=== PATIENT | male | born 1980 | race Caucasian/White ===

== ENCOUNTER 2024-07-13 06:11 | Inpatient (IN) | payer MEDICAID, SELFPAY ==
[2024-07-13] VITALS (8 sets, daily range): BP systolic 114–158; BP diastolic 77–113; PULSE 78–138; RESP 16–20; TEMP 36.6–37; O2SAT 96–100; BMI 26.7
--- NOTE | 2024-07-13 06:00 | HP.PCM.HOS_ITS ---
[facility] - General General Date of Admission: 07/13/24 Date of Service: 07/13/24 Chief Complaint: Wants Help with EtOH Detox. HPI Narrative DORENE ARVIZU, is a 44 M with a past medical history of being overweight; with BMI of 26.7 this admission, history of former tobacco abuse, history of asthma and Chronic EtOH Abuse; with patient routinely drinking ~12 sixteen oz. 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 Mr. Arvizu reports his symptoms began approximately three weeks prior to admission when he relapsed into his EtOH addiction in the aftermath of grieving for his pet. He states his last drink was on the morning of July 12, 2024 and he then developed tremors and worsening anxiety with nausea and sweats. He then went to [facility] ER where he was treated with IV Valium and banana bag IVF with persistent tachycardia in the ~130 bpm range. He denies fever, chills, abdominal pain, diarrhea, constipation, chest pain or SOB but he does admit to also being addicted to his rescue inhaler which he states he uses 50 times per day. He was then diagnosed with Acute EtOH Withdrawal in the setting of Chronic EtOH Abuse triggered by Severe Grief over the recent of his dog and he was then admitted to the PCU for ongoing care for a stay that is expected to extend beyond 2 midnights. [facility] Medical History no medical history Family History no significant family his Surgical History no surgical history Social History Smoking Status: Former smoker ROS ROS Narrative Review of Systems: General: Patient denies fevers chills. HENT: Denies headache, denies stuffy nose, denies sore throat EYES: Denies changes in vision or discharge from eyes. Resp: Denies cough, denies shortness of breath Cardiac: Patient admits to heart racing but he denies chest pain. GI: Denies abdominal pain, denies changes in bowel, had some nausea : Denies changes in urination Extremity: Denies swelling Musculoskeletal: Feels somewhat generally weak and unwell but he denies arthralgias or myalgias. Neuro: Patient denies headache, paresthesias or focal neurologic weakness. Heme: Denies any bleeding or bruising Skin: Denies rashes Psychiatric: Patient admits to heightened anxiety since the of his dog as per HPI. He denies suicidal or homicidal ideation. Endocrine: No polyuria, polydipsia or polyphagia. The rest of the 14 point ROS was negative except for positives in HPI. Vital Signs Vital Signs Vital Signs: 07/13/24 05:35 Temperature 97.8 F Temperature Source Temporal Pulse Rate 138 H Respiratory Rate 18 Blood Pressure 147/110 H Blood Pressure Mean 122 Blood Pressure Source Monitor Blood Pressure Position Sitting Blood Pressure Location Right Arm Pulse Ox 99 Oxygen Delivery Method Room Air Weight Weight: 180 lb 15.992 oz Body Mass Index (BMI) 26.7 Physical Exam Const alert, oriented x3, no apparent distress and average body habitus General Appearance: cooperative HEENT normocephalic, head/scalp atraumatic, hearing grossly normal bilaterally and moist oral mucous membranes Eyes PERRL and EOMs intact bilaterally Neck no lymphadenopathy and supple Resp normal respiratory effort, no retractions, no use of accessory muscles and clear to auscultation bilaterally Cardio regular rate and regular rhythm Cardio Narrative: Tachycardia noted in the ~130 bpm range. GI normal to inspection, nondistended, normoactive bowel sounds, soft to palpation and non-tender Extremity normal to inspection, full ROM and no clubbing, cyanosis or edema Skin Skin Narrative: Patient has numerous tattoos over his extremities but he has no evidence of rash , abscess or jaundice. Neuro oriented x3, CN's II-XII intact bilaterally, moves all extremities and no focal motor deficits Sensorium / Orientation: awake, alert, oriented to person, oriented to place and oriented to time Psych Mood & Affect: anxious Results Medical Records Data Attestation: I reviewed the patient's medical records Lab / Micro Data Attestation: I reviewed the patient's lab results. Lab results narrative: WBC 7.3 HGB 15.4 PLT 264 COVID - RENEE 16 Assessment & Plan Assessment/Plan (1) Alcohol withdrawal: QUALIFIERS: Complication of substance-induced condition: with unspecified complication Qualified Code(s): F10.939 - Alcohol use, unspecified with withdrawal, unspecified (2) Chronic alcohol abuse: (3) Acute anxiety: (4) Former tobacco use: (5) Overweight (BMI 25.0-29.9): PLAN: Plan 1. Acute EtOH Withdrawal in the setting of Chronic EtOH Abuse - Admit to PCU for treatment under the EtOH detox protocol primarily consisting of Phenobarbital taper. EtOH Cessation will be strongly encouraged. 2. Acute Anxiety Flare triggered by the recent of his dog of ~13 years - Noted. Give Vistaril IM for breakthrough symptoms of anxiety. 3. Former history of Tobacco Abuse complicating #1 & #2 - Noted. 4. Overweight; with BMI of 26.7 this admission - Weight loss will be recommended. Check TSH. 5. DVT prophylaxis - Lovenox 40 mg sq daily. Total time: Approximately 40 minutes. Charges/Coding Visit Charges Inpatient E&M: 61827 Init Hosp L1
--- NOTE | 2024-07-13 06:33 | EKG12_ITS ---
Test Reason : Blood Pressure : / mmHG Vent. Rate : 109 BPM Atrial Rate : 109 BPM P-R Int : 158 ms QRS Dur : 082 ms QT Int : 334 ms P-R-T Axes : 061 072 052 degrees QTc Int : 449 ms Sinus tachycardia Otherwise normal ECG No previous ECGs available Confirmed by SAVITA MOTT, KURTIS ([id number]), newspaper or periodical editor LEX MCCALL ([id number]) on 07/14/2024 6:22:52 AM Referred By: CARLOS Confirmed By:KURTIS BARNEY MD
[2024-07-13 07:29] LABS: Prothrombin Time (Protime)PT. 13.2 SECONDS (11.7-14.9)
[2024-07-13] MEDS: Gabapentin 300 MG Capsule PO ×2 (07:40→23:50)
[2024-07-13] MEDS: 0.9% Normal Saline (1000mL) 1,000 ML 125 ML IV (07:40)
[2024-07-13] MEDS: Phenobarbital 32.4 MG Tablet 64.8 MG PO ×5 (07:40→23:50)
[2024-07-13 08:12] LABS: Alcohol, Blood (Medical)-Serum < 3.0 mg/dL
--- NOTE | 2024-07-13 08:31 | PCM.PN.HOSP ---
Reason for Visit Reason for Visit: EtOH Detox Subjective Subjective Patient is a 44-year-old male who presented to the emergency department at [facility] emergency department on 07/13/2020 for requesting detox from alcohol. Since they do not do detox there he was transferred to this facility. Patient reported that he is drinking routinely about 1216 ounce tall boy beers daily since his dog on his birthday last month. 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 He stated that his symptoms began approximately 3 weeks prior to admission when he relapsed with his alcohol addiction which was precipitated by the of his pet. He reported his last drink was on the morning of 07/12/2024 and later that day developed tremors, worse anxiety, nausea and diaphoresis. He went to the emergency department at [facility] was treated with a banana bag of IV fluids and Valium and had persistent tachycardia. He was admitted to the medical floor here and started on a phenobarbital taper, thiamine and folate, and supportive medications for withdrawal symptoms. Objective Data Objective Data Vital Signs: Vital Signs Temp Pulse Resp BP Pulse Ox O2 Del Method 97.8 F 114 H 18 158/113 H 99 Room Air 07/13/24 07:41 07/13/24 07:41 07/13/24 07:41 07/13/24 07:41 07/13/24 07:41 07/13/24 07:41 Oxygen Delivery Method Room Air Weight: 82.1 kg Body Mass Index (BMI) 26.7 Lab / Micro Data 07/13/24 07:00 Labs: Laboratory Results - last 24 hr 07/13/24 07:00: PT 13.2, INR 1.0, Ethyl Alcohol < 3.0 Assessment & Plan Assessment/Plan (1) Alcohol withdrawal: QUALIFIERS: Complication of substance-induced condition: with unspecified complication Qualified Code(s): F10.939 - Alcohol use, unspecified with withdrawal, unspecified PLAN: Plan Acute alcohol withdrawal with ongoing alcohol abuse -Patient had a period of sobriety but relapsed after his dog -Continue phenobarbital taper -Continue thiamine and folate -Continue supportive medications for withdrawal symptoms -Discontinue IV fluids -180 consultation for assistance with discharge planning Alcoholic hepatitis -Transaminases and bilirubin elevated -Suspect slow decline with alcohol cessation -No marked elevations so no need to follow regularly Elevated blood pressure -No documented history of hypertension -Suspect blood pressure elevations are related to alcohol withdrawal -Will add as needed hydralazine for systolic blood pressure greater than 140 Tachycardia -Suspect related to acute withdraw -Continue to monitor periodically Asthma -Continue home inhalers -Continue home Singulair History of tobacco abuse -Remote -Recommend ongoing cessation DVT prophylaxis -Continue subcu Lovenox CODE STATUS -Full code
[2024-07-13 08:36] LABS: ALB/GLOB Ratio 1.1 RATIO (0.9-2.4); AST(SGOT) 80 U/L (15-37); Alanine Aminotransfer ALT/SGPT 105 U/L (16-61); Albumin, Serum 3.6 g/dL (3.2-5.0); Alkaline Phosphatase 88 U/L (45-117); Anion Gap 12 (5-15); BUN 10 mg/dL (7-18); BUN/Creat Ratio 13.1 RATIO (10-20); Calcium,Total 8.6 mg/dL (8.5-10.1); Chloride 101 mmol/L (98-107); Creatinine, Serum 0.77 mg/dL (0.70-1.30); EST Glomerular Filtration Rate 117 mL/min (>60); Est Glom Filt Rate - Afr Amer 141 mL/min (>60); Estimated Creatinine Clearance 121.15 ml/min; Folates, (Folic Acid) > 100.00 ng/mL (3.1-55.4); Globulin 3.3 g/dL (2.2-4.2); Glucose 93 mg/dL (74-106); Potassium 3.7 mmol/L (3.5-5.1); Protein, Total 6.9 g/dL (6.4-8.2); Sodium Level 136 mmol/L (136-145); Troponin-I HS 4 pg/mL (3.0-78.0)
[2024-07-13 09:41] LABS: Vitamin B12 512 pg/mL (211-911)
[2024-07-13] MEDS: Mag Hydrox/Al Hydrox/Simeth 30 ML UDC PO (10:10)
[2024-07-13] MEDS: Montelukast 10 MG Tablet PO (10:10)
[2024-07-13] MEDS: Ibuprofen 200 MG Tablet PO ×2 (10:10→20:02)
[2024-07-13] MEDS: Thiamine Hydrochloride 100 MG Tablet PO (10:10)
[2024-07-13] MEDS: Multivitamins,Therapeutic Tablet 1 TABLET PO (10:10)
[2024-07-13] MEDS: Folic Acid 1 MG Tablet PO (10:10)
--- NOTE | 2024-07-13 11:05 | ADDICTION ---
Met with pt to complete RAMP assessments. Pt reports that he suffers from grief issues due to father euthanizing dog in back yard and well as childhood trauma issues. Pt reports that he struggles with severe asthma which makes it difficult to work. Pt had some ambivalence for [facility] treatment but agreed to see a counselor at [facility] in [place] for his mental health concerns.
[2024-07-13] MEDS: Albuterol 2.5 MG/3 ML VIAL.NEB. INHALATION ×3 (11:17→20:25)
[2024-07-13] MEDS: hydrOXYzine PAM 25 MG Capsule 50 MG PO ×2 (11:27→20:01)
--- NOTE | 2024-07-13 13:34 | CHAPLAIN ---
Type of Pastoral Visit _x__ Initial Visit ___ Follow-up Visit ___ On-call Visit ___ General Patient Visit ___ Spiritual Assessment ___ Family Conference ___ Bereavement ___ Rapid Response ___ Code Blue ___ Other (describe below) Pastoral Care Referral From _x__ Patient ___ Family ___ Nurse ___ Physician ___ Circulation Man ___ Furniture Upholstery Mechanic ___ Other (describe below) Sacrament/Intervention _x__ Active listening ___ Anointing ___ Yarsani ___ Bereavement ___ Communion _x__ Odette exploration ___ _x__ Life review _x__ Prayer ___ Reconciliation ___ Sacrament of Sick _x__ Supportive presence ___ Wedding ___ Other (describe below) Pastoral Comments this was a long visit with the patient who was willing to talk and be open about his situation, emotional pain of losing his pet which was his closest educational technologist in these days; pt had been sober but went into a heavy drinking binge since not coping well with grief and his insomnia; pt states several times about his need to go into counseling which was really helpful to me before; pt speaks of childhood hurts as reason for need of counseling and working through these things; pt is affirmed in his desire to face the causes of his drinking and not just the drinking; pt states that his severe asthma keeps him from ability to work very much and that he has financial needs; pt admits to anxiety and worrying about a lot of things; pt also speaks of his creativity in music and writing; pt given time to talk, to be heard, to be affirmed as a person, to applaud him for seeking help now, and for his decisions about the future; prayer was welcomed; pt states that he used to be an atheist but now considers himself Yazidism
[2024-07-13] MEDS: 0.9% Saline Lock 10 ML Syringe IV (20:02)
[2024-07-13] MEDS: Budesonide Respules 0.5 MG/2 ML AMPUL.NEB. INHALATION (20:25)
[2024-07-13] MEDS: traZODone 100 MG Tablet PO (23:50)
[2024-07-14] VITALS (8 sets, daily range): BP systolic 109–115; BP diastolic 72–78; PULSE 81–102; RESP 16–18; TEMP 36.4–36.9; O2SAT 97–100; BMI 27.8
[2024-07-14] MEDS: Phenobarbital 32.4 MG Tablet 64.8 MG PO ×6 (03:31→22:41)
[2024-07-14] MEDS: hydrOXYzine PAM 25 MG Capsule 50 MG PO ×2 (03:31→11:16)
[2024-07-14] MEDS: Albuterol 2.5 MG/3 ML VIAL.NEB. INHALATION ×3 (07:12→20:30)
[2024-07-14] MEDS: Budesonide Respules 0.5 MG/2 ML AMPUL.NEB. INHALATION ×2 (07:12→20:30)
[2024-07-14 07:19] LABS: Anion Gap 4 (5-15); BUN 12 mg/dL (7-18); BUN/Creat Ratio 14.5 RATIO (10-20); Calcium,Total 8.9 mg/dL (8.5-10.1); Chloride 104 mmol/L (98-107); Creatinine, Serum 0.83 mg/dL (0.70-1.30); EST Glomerular Filtration Rate 107 mL/min (>60); Est Glom Filt Rate - Afr Amer 129 mL/min (>60); Estimated Creatinine Clearance 121.87 ml/min; Glucose 85 mg/dL (74-106); Phosphorus 3.6 mg/dL (2.5-4.9); Potassium 3.7 mmol/L (3.5-5.1); Sodium Level 138 mmol/L (136-145)
[2024-07-14 07:20] LABS: Absolute Lymphocyte Count 1.11 X10^3/uL (0.83-4.51); Absolute Neutrophil Count 2.4 X10^3/uL (2.0-7.7); Basophil# 0.03 X10^3/uL; Basophil% 0.7 % (0-1); Eosinophil# 0.15 X10^3/uL; Eosinophils% 3.6 % (0-5); Hematocrit 38.7 % (40-54); Hemoglobin 12.5 g/dL (13.0-16.5); Lymphocyte # 1.11 X10^3/ul (0.83-4.51); Lymphocyte % 26.6 % (19-41); Mean Corp Hgb Conc 32.3 g/dL (32-36); Mean Corpuscular Hgb 31.1 pg (27.0-32.0); Mean Corpuscular Volume 96.3 fL (80-94); Mean Platelet Vol. 9.7 fl (6.2-12.0); Monocyte# 0.48 X10^3/uL; Monocyte% 11.5 % (0-10); NRBC Flagged by Analyzer 0 % (0-5); Neutrophil % 57.4 % (47-70); Platelet Count 189 K/mm3 (150-450); RBC Distribution Width CV 15.6 % (11.6-14.6); RBC Distribution Width SD 55.8 fl (35.1-43.9); Red Blood Count 4.02 M/mm3 (4.6-6.2); White Blood Count 4.2 K/mm3 (4.4-11.0)
[2024-07-14 07:26] LABS: Amphetamine Urine VISTA NEGATIVE (<1000 ng/mL); Barbiturate Urine VISTA POSITIVE (< 200 ng/mL); Benzodiazepine Urine VISTA POSITIVE (< 200 ng/mL); Cocaine Urine VISTA NEGATIVE (< 300 ng/mL); Ecstacy Urine VISTA NEGATIVE (< 500 ng/mL); Methadone Urine VISTA NEGATIVE (< 300 ng/mL); PCP Urine VISTA NEGATIVE (< 25 ng/mL); THC Urine VISTA NEGATIVE (< 50 ng/mL); Vista UDS pH Range 6
[2024-07-14] MEDS: Thiamine Hydrochloride 100 MG Tablet PO (07:54)
[2024-07-14] MEDS: Folic Acid 1 MG Tablet PO (07:54)
[2024-07-14] MEDS: Gabapentin 300 MG Capsule PO (07:54)
[2024-07-14] MEDS: Multivitamins,Therapeutic Tablet 1 TABLET PO (07:54)
[2024-07-14] MEDS: Montelukast 10 MG Tablet PO (07:54)
[2024-07-14] MEDS: busPIRone 5 MG Tablet 10 MG PO ×2 (15:04→22:26)
--- NOTE | 2024-07-14 16:35 | PN.HOSP_ITS ---
Reason for Visit Reason for Visit: Alcohol detox Subjective Subjective Patient states he is feeling much better. He states he is having some abdominal issues because he is overeating and he is not used to eating because he usually drinks his calories. He also states that his anxiety is a big issue. He states that whenever we are giving him here work significantly. We initially thought this was Ativan however does appear that his hydroxyzine. We also discussed starting some BuSpar and he was agreeable to this. Objective Data Objective Data Vital Signs: Vital Signs Temp Pulse Resp BP Pulse Ox O2 Del Method 97.6 F L 89 18 109/72 97 Room Air 07/14/24 10:40 07/14/24 12:49 07/14/24 12:49 07/14/24 10:40 07/14/24 10:40 07/14/24 10:40 Oxygen Delivery Method Room Air Weight: 85.6 kg Body Mass Index (BMI) 27.8 Intake & Output: Intake and Output for Last 24 Hours 07/12/24 07/13/24 07/14/24 23:59 23:59 23:59 Intake Total 2718.75 / 2718.75 Balance 2718.75 / 2718.75 Lab / Micro Data 07/14/24 06:44 07/14/24 06:44 Labs: Laboratory Results - last 24 hr 07/13/24 06:50: Urine Opiates Screen NEGATIVE, Urine Methadone Screen NEGATIVE, Ur Barbiturates Screen POSITIVE H, Ur Phencyclidine Scrn NEGATIVE, Ur Amphetamines Screen NEGATIVE, MDMA (Ecstasy) Screen NEGATIVE, U Benzodiazepines Scrn POSITIVE H, Urine Cocaine Screen NEGATIVE, U Cannabinoids Screen NEGATIVE, Ur Drug Screen Comment 07/14/24 06:44: WBC 4.2 L, RBC 4.02 L, Hgb 12.5 L, Hct 38.7 L, MCV 96.3 H, MCH 31.1, MCHC 32.3, RDW Std Deviation 55.8 H, RDW Coeff of Husam 15.6 H, Plt Count 189, MPV 9.7, Immature Gran % (Auto) 0.200, Neut % (Auto) 57.4, Lymph % (Auto) 26.6, [place] % (Auto) 11.5 H, Eos % (Auto) 3.6, Baso % (Auto) 0.7, Absolute Neuts (auto) 2.4, Absolute Lymphs (auto) 1.11, Nucleated RBC % 0, Sodium 138, Potassium 3.7, Chloride 104, Carbon Dioxide 30.0, Anion Gap 4 L, BUN 12, Creatinine 0.83, Estim Creat Clear Calc 121.87, Est GFR (MDRD) Af Amer 129, Est GFR (MDRD) Non-Af 107, BUN/Creatinine Ratio 14.5, Glucose 85, Calcium 8.9, Phosphorus 3.6, Magnesium 2.0 Physical Exam Const alert, oriented x3, no apparent distress and well nourished; Negative for average body habitus Constitutional Narrative: Slightly overweight, very anxious appearing, middle-aged, white male, lying in bed and then sitting up in bed watching television, appears comfortable, nontoxic General Appearance: cooperative HEENT head/scalp atraumatic and moist oral mucous membranes Head and Scalp: normocephalic Eyes PERRL and EOMs intact bilaterally Neck no lymphadenopathy and supple Resp normal respiratory effort, no retractions, no use of accessory muscles and clear to auscultation bilaterally Auscultation: Negative for rales, rhonchi or wheezes Cardio regular rate, regular rhythm, S1 normal heart sound, S2 normal heart sound, no murmurs, no rub, no gallops and no clicks Cardio Narrative: Tachycardia noted in the ~130 bpm range. GI normal to inspection, nondistended, normoactive bowel sounds, soft to palpation and non-tender Extremity no clubbing, cyanosis or edema Extremity Narrative: Pedal and radial pulses are 2+ Skin Skin Narrative: Patient has numerous tattoos over his extremities but he has no evidence of rash, abscess or jaundice. Neuro oriented x3, moves all extremities and no focal motor deficits Sensorium / Orientation: awake, alert, oriented to person, oriented to place and oriented to time Speech: speech normal Psych affect normal Psych Narrative: Anxious but makes good eye contact intact and interacts appropriately Mood & Affect: anxious Assessment & Plan Assessment/Plan (1) Alcohol withdrawal: QUALIFIERS: Complication of substance-induced condition: with unspecified complication Qualified Code(s): F10.939 - Alcohol use, unspecified with withdrawal, unspecified PLAN: Plan Acute alcohol withdrawal with ongoing alcohol abuse -Patient had a period of sobriety but relapsed after his dog -Continue phenobarbital taper -Continue thiamine and folate -Continue supportive medications for withdrawal symptoms -180 consultation for assistance with discharge planning Alcoholic hepatitis -Transaminases and bilirubin elevated -Suspect slow decline with alcohol cessation -No marked elevations so no need to follow regularly Elevated blood pressure -Much improvedthrough some of his withdrawal and treated adequately Tachycardia -Resolved Asthma -Continue home inhalers -Continue home Singulair Severe anxiety -Continue as needed hydroxyzine will likely discharge him on this -Start BuSpar 10 mg 3 times daily-this will likely need to be uptitrated after 1 week of therapy but should be reevaluated at that time -Will refer to Dr. Krishnan at discharge History of tobacco abuse -Remote -Recommend ongoing cessation DVT prophylaxis -Continue subcu Lovenox CODE STATUS -Full code Charges/Coding Visit Charges Inpatient E&M: 32667 Subs Hosp L2
--- NOTE | 2024-07-14 20:53 | PCM.HOSP.N ---
Hospitalist Note Patient is transferred to [facility] and does not have PCU needed. Patient is on his standard management for alcohol withdrawal. Transferred to [facility]
[2024-07-15 00:04] VITALS: BP 117/80; PULSE 100; RESP 18; TEMP 36.4; O2SAT 99
[2024-07-15] MEDS: MELATONIN 3 MG TABLET PO (00:15)
[2024-07-15] MEDS: Gabapentin 300 MG Capsule PO (00:15)
[2024-07-15] MEDS: Phenobarbital 32.4 MG Tablet 64.8 MG PO ×3 (03:59→11:28)
[2024-07-15 06:07] VITALS: BP 115/72; PULSE 89; RESP 18; TEMP 36.4; O2SAT 100
[2024-07-15 06:11] VITALS: BMI 27.8
[2024-07-15] MEDS: busPIRone 5 MG Tablet 10 MG PO ×2 (06:11→14:07)
[2024-07-15] MEDS: Budesonide Respules 0.5 MG/2 ML AMPUL.NEB. INHALATION (07:16)
[2024-07-15] MEDS: Albuterol 2.5 MG/3 ML VIAL.NEB. INHALATION ×2 (07:17→13:13)
[2024-07-15 07:18] VITALS: PULSE 94; RESP 18; O2SAT 99
[2024-07-15 07:20] LABS: Magnesium 1.7 mg/dL (1.6-2.6); Phosphorus 4.4 mg/dL (2.5-4.9)
[2024-07-15 07:41] VITALS: BP 119/80; PULSE 88; RESP 16; TEMP 36.9; O2SAT 99
[2024-07-15] MEDS: Thiamine Hydrochloride 100 MG Tablet PO (07:48)
[2024-07-15] MEDS: Multivitamins,Therapeutic Tablet 1 TABLET PO (07:48)
[2024-07-15] MEDS: Folic Acid 1 MG Tablet PO (07:48)
[2024-07-15] MEDS: Montelukast 10 MG Tablet PO (11:28)
[2024-07-15 12:51] VITALS: BP 117/80; PULSE 85; RESP 16; TEMP 36.8; O2SAT 100
[2024-07-15 13:14] VITALS: PULSE 95; RESP 18
--- NOTE | 2024-07-15 13:16 | PCM.DC.SUM ---
Providers Date of Admission: 07/13/24 Primary Care Physician: Dr. Carley Hamilton, DO Reason For Visit: ACUTE ETOH WITHDRAWAL Diagnosis Discharge Diagnosis (1) Alcohol withdrawal: Status: Acute Code(s): F10.939 - Alcohol use, unspecified with withdrawal, unspecified Qualifiers: Complication of substance-induced condition: with unspecified complication Qualified Code(s): F10.939 - Alcohol use, unspecified with withdrawal, unspecified Medications at Discharge Home Medications albuterol sulfate 90 mcg/actuation aerosol inhaler 2 puff inhalation Q6H PRN PRN wheezing 07/13/24 ipratropium 0.5 mg-albuterol 3 mg (2.5 mg base)/3 mL nebulization soln 1 inhalation Q4H PRN PRN wheezing 07/13/24 mometasone-formoterol HFA 100 mcg-5 mcg/actuation aerosol inhaler (Dulera) 2 puff inhalation BID 07/13/24 mometasone-formoterol HFA 200 mcg-5 mcg/actuation aerosol inhaler (Dulera) 2 puff inhalation BID 07/13/24 montelukast 10 mg tablet 10 mg PO DAILY 07/13/24 buspirone 5 mg tablet 10 mg (2 x 5 mg) PO TID #120 tabs 07/15/24 hydroxyzine pamoate 25 mg capsule 50 mg (2 x 25 mg) PO Q4H PRN PRN mild anxiety #120 caps 07/15/24 Hospital Course Operations None Procedures None Summary of Care Provided Minutes Spent on Discharge: 25 Hospital Course: Mr. Arvizu is a 44-year-old male who presented to the emergency department at [facility] emergency department on 07/13/2020 for requesting detox from alcohol. Since they do not do detox there he was transferred to this facility. Patient reported that he is drinking routinely about 1216 ounce tall boy beers daily since his dog on his birthday last month. Evidently his father had to euthanize his canine inpatient coder at that time. He stated that his symptoms began approximately 3 weeks prior to admission when he relapsed with his alcohol addiction which was precipitated by the of his pet. He reported his last drink was on the morning of 07/12/2024 and later that day developed tremors, worse anxiety, nausea and diaphoresis. He went to the emergency department at [facility] was treated with a banana bag of IV fluids and Valium and had persistent tachycardia. He was admitted to the medical floor here and started on a phenobarbital taper, thiamine and folate, and supportive medications for withdrawal symptoms. His overall withdrawal was uneventful and anxiety was his biggest issue of his admission. We placed him on BuSpar 10 mg 3 times daily to help address his anxiety. I do suspect this will need to be uptitrated with time as he does have significant anxiety but this should be uptitrated slowly. We also placed him on as needed hydroxyzine and impressed upon him the importance of not taking more than is ordered. He had been using his albuterol inhaler excessively and I suspect this is likely contributing extensively to his anxiety as well. He was instructed to only use medications as prescribed. He did recommend that he follow-up with psychiatry and gave him a referral to see Dr. Krishnan as an outpatient. Have also asked him to follow-up with his primary care physician within the next week for reevaluation of his anxiety until he can get into see psychiatry. He was discharged with instructions to follow-up in [place] for ongoing alcohol rehabilitative services and went home in stable condition on 07/15/2024. CIWA at the time of discharge was only positive at 1 for anxiety. Discharge diagnoses: Acute alcohol withdrawal Chronic alcohol abuse Alcoholic hepatitis Elevated blood pressure-resolved Tachycardia-resolved Asthma History of tobacco abuse Physical Exam Const alert, oriented x3, no apparent distress, no limitations and well nourished; Negative for average body habitus Constitutional Narrative: Slightly overweight, very anxious appearing, middle-aged, white male, lying in bed sleeping soundly but awakens without any issue, appears comfortable, nontoxic General Appearance: cooperative, comfortable, well kempt and well developed Orientation / Consciousness: awake, oriented to person, oriented to place and oriented to time Exam Limitations: no limitations Nutritional Appearance: overweight HEENT normocephalic, head/scalp atraumatic, hearing grossly normal bilaterally and moist oral mucous membranes HEENT Narrative: Dentition is good, Mallampati is 2-3, no thrush Resp normal respiratory effort, no retractions, no use of accessory muscles and clear to auscultation bilaterally Auscultation: Negative for rales, rhonchi or wheezes Cardio regular rate, regular rhythm, S1 normal heart sound, S2 normal heart sound, no murmurs, no rub, no gallops and no clicks GI normal to inspection, nondistended, normoactive bowel sounds, soft to palpation and non-tender Extremity no clubbing, cyanosis or edema Extremity Narrative: Pedal and radial pulses are 2+ Neuro oriented x3, moves all extremities and no focal motor deficits Speech: speech normal Psych affect normal Psych Narrative: Anxious but makes good eye contact intact and interacts appropriately Mood & Affect: anxious Weight / BMI Weight Weight: 85.6 kg Body Mass Index (BMI) 27.8 ABG / Lab / Microbiology Data 07/14/24 06:44 07/14/24 06:44 Laboratory: Laboratory Results - last 24 hr 07/15/24 06:03: Phosphorus 4.4, Magnesium 1.7 D/C Instructions Discharge Diet: No restrictions Discharge Activity: Return to Normal Activity Meaningful Use Info Meaningful Use Meaningful Use Diagnoses (Choose all that apply): None applicable Ischemic Stroke Statin Dosing Therapy Reference: STATIN DOSE THERAPY REFERENCE: * Patients > 75 years receive moderate or high dose statin therapy. * Patients 75 years or YOUNGER should receive HIGH intensity statin dose unless contraindicated. You will be required to document reason for non-treatment if statin daily dose does not meet guidelines. HIGH DOSE STATIN THERAPY DAILY Atorvastatin > than or = to 40 mg Rosuvastatin > than or = to 20 mg Amlodipine + Atorvastatin > than or = to 2.5/40 mg Ezetimibe + Simvastatin 10/80 mg Simvastatin 80mg Discharge Plan Admission Admit Date/Time: 07/13/24 06:11 Primary Reason for Your Visit: ETOH Detox Attending Provider: Carol Rose Primary Care Provider: Carley Hamilton Consulting Providers: Jet Cardenas Instructions Additional Instructions / Restrictions: 1. Do not use your albuterol any more than every 6 hours as this can make your anxiety worse 2. Do not take the hydroxyzine anymore frequently than prescribed 3. Please continue taking your BuSpar and follow-up with your primary care physician and call tomorrow to set up an appointment to see Dr. Krishnan as an outpatient 4. Follow-up in [place] for ongoing alcohol rehabilitative services as directed by Louie from 180 Discharge Orders/Prescriptions Prescriptions: New buspirone 5 mg Tablet 10 mg PO TID Qty: 120 0RF hydroxyzine pamoate 25 mg Capsule 50 mg PO Q4H PRN PRN (Reason: mild anxiety) Qty: 120 0RF Continued ipratropium-albuterol 0.5 mg-3 mg(2.5 mg base)/3 mL solution for nebulization 1 inhalation Q4H PRN PRN (Reason: wheezing) montelukast 10 mg tablet 10 mg PO DAILY albuterol sulfate 90 mcg/actuation HFA aerosol inhaler 2 puff inhalation Q6H PRN PRN (Reason: wheezing) Dulera 100-5 mcg/actuation HFA aerosol inhaler 2 puff INHALATION BID Dulera 200-5 mcg/actuation HFA aerosol inhaler 2 puff inhalation BID Referrals / Follow Up: Carley Hamilton DO [Primary Care Provider] - Within 1 Week Pk Krishnan DO [Med Staff - Qualifications Examiner] - Within 2 Weeks Disposition Disposition (needs filled in before D/C Order can be placed): Home, Self Care Charges/Coding Visit Charges Inpatient E&M: 72773 Disch Hosp
--- NOTE | 2024-07-15 14:53 | CHAPLAIN ---
Type of Pastoral Visit ___ Initial Visit _x__ Follow-up Visit ___ On-call Visit ___ General Patient Visit ___ Spiritual Assessment ___ Family Conference ___ Bereavement ___ Rapid Response ___ Code Blue ___ Other (describe below) Pastoral Care Referral From _x__ Patient ___ Family ___ Nurse ___ Physician ___ Carpenter ___ Family Dinner Service Specialist ___ Other (describe below) Sacrament/Intervention _x__ Active listening ___ Anointing ___ Mandaeism ___ Bereavement ___ Communion ___ Odette exploration ___ ___ Life review _x__ Prayer ___ Reconciliation ___ Sacrament of Sick _x__ Supportive presence ___ Wedding ___ Other (describe below) Pastoral Comments follow up with this patient who had asked for another visit if possible; pt is expecting to be discharged soon; pt is talkative about what he needs to do next and over the next few days; pt reviews his need for counseling; pt is open to discuss his life; this water analyst affirms patient in his plan and desires for a better future; pt welcomes presence and prayer for support
== END 2024-07-15 14:22 | disposition home or self-care (01) | DRG 775 ==
LOC: PCU 07-14 13:37 → MS3 07-14 23:59
PROVIDERS: Admitting Provider Internal Medicine; Visit Provider Internal Medicine
DX: F10.139 Alcohol abuse with withdrawal, unspecified (principal); E66.3 Overweight; K70.10 Alcoholic hepatitis without ascites; J45.909 Unspecified asthma, uncomplicated; F41.9 Anxiety disorder, unspecified; R11.0 Nausea; R03.0 Elevated blood-pressure reading, without diagnosis of hypertension; Z68.26 Body mass index [BMI] 26.0-26.9, adult; Z79.899 Other long term (current) drug therapy; Z87.891 Personal history of nicotine dependence
CPT/HCPCS: 36415; 80048; 80053; 80307; 82077; 82607; 82746; 83735; 84100; 84443; 84484; 85025; 85610; 93005; 94640; 94668; J7030; A4216

== ENCOUNTER → 2025-01-26 | Outpatient (CLI) | payer MEDICAID, SELFPAY ==
[2025-01-26 12:37] LABS: Absolute Lymphocyte Count 1.36 X10^3/uL (0.83-4.51); Absolute Neutrophil Count 3.6 X10^3/uL (2.0-7.7); Basophil# 0.09 X10^3/uL; Basophil% 1.5 % (0-1); Eosinophil# 0.21 X10^3/uL; Eosinophils% 3.6 % (0-5); Hematocrit 39.2 % (40-54); Hemoglobin 13.5 g/dL (13.0-16.5); Lymphocyte # 1.36 X10^3/ul (0.83-4.51); Lymphocyte % 23.1 % (19-41); Mean Corp Hgb Conc 34.4 g/dL (32-36); Mean Corpuscular Hgb 32.3 pg (27.0-32.0); Mean Corpuscular Volume 93.8 fL (80-94); Monocyte# 0.62 X10^3/uL; Monocyte% 10.5 % (0-10); NRBC Flagged by Analyzer 0 % (0-5); Neutrophil # 3.59 X10^3/uL (2.7-7.7); Neutrophil % 61.1 % (47-70); Platelet Count 255 K/mm3 (150-450); RBC Distribution Width CV 14.9 % (11.6-14.6); RBC Distribution Width SD 51.9 fl (35.1-43.9); Red Blood Count 4.18 M/mm3 (4.6-6.2); White Blood Count 5.9 K/mm3 (4.4-11.0)
[2025-01-26 13:32] LABS: Hemoglobin A1c 5.1 % (<=5.6)
[2025-01-26 13:33] LABS: ALB/GLOB Ratio 1.5 RATIO (0.9-2.4); AST(SGOT) 159 U/L (<=37); Alanine Aminotransfer ALT/SGPT 124 U/L (<=46); Albumin, Serum 4.3 g/dL (3.5-5.0); Alkaline Phosphatase 84 U/L (40-129); BUN 7 mg/dL (4-19); BUN/Creat Ratio 11.3 RATIO (10-20); Calcium,Total 9.2 mg/dL (7.6-11.0); Cholesterol 229 mg/dL (<=200); Creatinine, Serum 0.63 mg/dL (0.70-1.20); EST Glomerular Filtration Rate 120 (>60); Globulin 2.9 g/dL (2.2-4.2); Glucose 84 mg/dL (70-99); Protein, Total 7.2 g/dL (5.9-8.4); Total Bilirubin 0.43 mg/dL (0.00-1.30); Triglycerides 44 mg/dL
[2025-01-26 13:34] LABS: Anion Gap 16 (5-15); Carbon Dioxide 19.9 mmol/L (21.0-32.0); Chloride 102 mmol/L (98-108); High Density Lipoprotein 129 mg/dL; Low Density Lipoprotein Calc. 91 mg/dL; Sodium Level 138 mmol/L (133-145); Very Low Density Lipoprotein 9 mg/dL (5-40); cholesterol:hdl ratio screen 1.78
== END | disposition home or self-care (01) ==
LOC: VSLAB 11:05
DX: Z13.6 Encounter for screening for cardiovascular disorders (principal); Z13.220 Encounter for screening for lipoid disorders
CPT/HCPCS: 36415; 80053; 80061; 83036; 84443; 85025